=== PATIENT | male | born 1965 | race Caucasian/White ===

== ENCOUNTER 2016-08-14 05:16 | Emergency (ER) | payer MEDICAID ==
[~2016-08-14] VITALS: Ht 165.1 cm; Wt 72.0 kg
[2016-08-14] MEDS ORDERED: HYDROcodone/APAP 5/325 TABLET PO ONE (06:30)
[2016-08-14 06:32] VITALS: BP 150/93
[2016-08-14] MEDS ORDERED: HYDROcodone/APAP 5/325 TABLET ONE (06:37)
== END 2016-08-14 07:46 | disposition home or self-care (01) ==
LOC: ED 06:22
DX: J20.9 Acute bronchitis, unspecified (principal); H66.93 Otitis media, unspecified, bilateral; I10 Essential (primary) hypertension
CPT/HCPCS: 71020